=== PATIENT | female | born 1970 | race African-American/Black ===

== ENCOUNTER 2025-05-15 23:03 | Emergency (ER) | payer SELFPAY ==
[~2025-05-15] VITALS: Ht 157.5 cm; Wt 59.0 kg
[2025-05-15 23:06] VITALS: BP 167/83; PULSE 87; RESP 16; TEMP 36.8; O2SAT 99
[2025-05-16] MEDS: ACETAMINOPHEN 325MG TABLET PO ONE (00:30)
[2025-05-16] MEDS: ONDANSETRON HCL 4MG TABLET PO ONE (00:30)
[2025-05-16] MEDS ORDERED: NAPR-1176 MT (02:49)
== END 2025-05-16 03:58 | disposition home or self-care (01) ==
LOC: ER 23:03
DX: S01.81XA Laceration without foreign body of other part of head, initial encounter (principal); S09.90XA Unspecified injury of head, initial encounter; Z79.1 Long term (current) use of non-steroidal anti-inflammatories (NSAID); Z85.3 Personal history of malignant neoplasm of breast; Z88.6 Allergy status to analgesic agent; Y08.89XA Assault by other specified means, initial encounter; Y93.89 Activity, other specified; Y92.89 Other specified places as the place of occurrence of the external cause; Y99.8 Other external cause status
CPT/HCPCS: 12002; 99284; 70450; Q0162; Z7610